=== PATIENT | female | born 1965 | race Caucasian/White ===

== ENCOUNTER 2018-05-01 12:14 | Outpatient (REF) | payer BC, SELFPAY ==
[2018-05-01 21:11] LABS: Abs Immature Grans 0.01 k/cumm (0.0-0.09); Absolute Basophil Count 0.02 k/cumm (0.0-0.2); Absolute Eosinophil Count 0.07 k/cumm (0.0-0.7); Absolute Lymphocyte Count 1.85 k/cumm (1.2-3.4); Absolute Neutrophil Count 2.81 k/cumm (1.2-6.7); Basophils % 0.4; Eosinophils % 1.4; HCT 41.6 % (36.0-46.0); HGB 13.9 g/dL (12.0-15.5); Immature Grans % 0.2; Lymphocytes % 35.9; Mean Corp. HGB Concentration 33.4 g/dL (32.0-36.0); Mean Corpuscular Hemoglobin 30.4 pg (27.0-33.0); Mean Platelet Volume 10.4 fL (8.0-11.0); Monocytes % 7.8; Neutrophils % 54.3; Platelet Count 291 x1000/uL (130-400); RBC 4.57 m/cumm (4.00-5.20); RBC Distribution Width 13.2 % (11.7-14.6); White Blood Cell Count 5.16 k/cumm (4.4-10.8)
[2018-05-01 21:49] LABS: Anion Gap 7.9 mmol/L (3-11); BUN 25 mg/dL (7-18); CO2 28.1 mmol/L (21.0-32.0); CREATININE 0.82 mg/dL (0.55-1.02); Calcium 9.6 mg/dL (8.5-10.1); Chloride 102 mmol/L (98-107); Glucose 112 mg/dL (70-100); Magnesium 1.8 mg/dL (1.8-2.4); Potassium 4.5 mmol/L (3.5-5.1); Sodium 138 mmol/L (136-145); TSH (W/Ref FT4) 0.78 uIU/mL (0.358-3.74); Vitamin B12 395 pg/mL (193-986)
== END 2018-05-01 12:34 ==
LOC: NCHCN 12:14
PROVIDERS: PCP Nurse Practitioner; Visit Provider Nurse Practitioner Family
DX: R20.2 Paresthesia of skin (principal); R00.2 Palpitations; F10.10 Alcohol abuse, uncomplicated; E66.9 Obesity, unspecified
CPT/HCPCS: 80048; 82607; 83735; 84443; 85025

== ENCOUNTER 2018-09-15 08:03 | Observation (INO) | payer BC, SELFPAY ==
[2018-09-15] VITALS (15 sets, daily range): BP systolic 108–154; BP diastolic 68–94; PULSE 54–68; RESP 11–22; TEMP 36.3–37.1; O2SAT 95–100
--- NOTE | 2018-09-15 08:24 | DI.CT_ITS ---
SYMPTOM/DIAGNOSIS: RLQ ABD PAIN ABDOMEN AND PELVIC CT: Images were performed from the lung bases through the ischial tuberosities after IV and oral contrast. There is abnormal dilatation of the appendix consistent with acute appendicitis. There is no evidence of abscess or perforation. There is no bowel obstruction. The lung bases are clear. The heart size is normal. The liver, gallbladder, spleen, pancreas, adrenals and kidneys are unremarkable. An IUD is noted within the uterus. The ovaries appear normal. The urinary bladder is unremarkable. IMPRESSION: The findings are consistent with acute appendicitis. No abscess or perforation is seen.
--- NOTE | 2018-09-15 08:25 | W.ED.GENAD ---
Discharge Plan Disposition Patient Disposition: [facility] INPATIENT Condition: Stable Discharge Details Chief Complaint: Abd Prob Clinical Impression: Acute appendicitis Admit Date/Time: 09/15/18 14:24 Admit Provider: Mary Morris Attending Provider: Mary Morris Primary Care Provider: Melissa Blanton [facility] Course: 52 y/o female presented to the ED earlier today with abdominal pain. CT findings consistent with acute appendicitis. Patient underwent an uneventful laparoscopic appendectomy which she tolerated well. Patient was started on an oral diet which she tolerated prior to discharge. Discharge Instructions Additional Instructions: No lifting > 20 pounds x 2 weeks. May use heating pad or ice pack to abdomen as needed for comfort. Forms: Nursing Discharge Form Referrals: Roxanne Doshi MD [ [facility] STAFF PHYSICIAN] - (Follow-up with general surgery in 2 weeks. Post-op visit s/p lap appy.) Discharge Data Discharge Date/Time-TO BE ENTERED AT DEPARTURE: 09/15/18 23:00 Medical Decision Making Patient presenting to the emergency department for chief complaint of abdominal pain. Patient states that this discomfort is been going on for the past 10 days and she associated the discomfort with some constipation. She contacted her electronics engineering professor given that she has a history of ulcerative colitis whom recommended she start MiraLAX. Patient did have a bowel movement 2 days ago which then helped with her symptoms but then yesterday evening she started having severe abdominal pain and cramping. It does seem to be a little bit better this morning but still is persistent. Patient denies any other baseline changes from her ulcerative colitis or other medical complaints. Physical exam shows a soft abdomen with normal active bowel sounds in all quadrants but tenderness to the right lower quadrant. No CVA tenderness and otherwise unremarkable exam. Plan to check labs and CT imaging. Patient denies any need of pain medication or treatment pending results at this time. Labs were reviewed and show no leukocytosis and are otherwise nondiagnostic. CT imaging shows findings suggestive of acute appendicitis. Dr. Morris was consulted for consideration of surgical intervention for acute appendicitis. Patient was admitted to surgery services and patient was in agreement with this plan of care HPI General Mode of arrival: ambulatory. Date/Time Provider Initiated Documentation: 09/15/18 08:04. Limitations to Documentation: no limitations. Information obtained by: RN notes reviewed. History of Present Illness 52 year old F presents to the emergency department with the chief complaint of abd pain, described as mild, with intensity rated at 2. Quality is described as aching and other (cramping), and is localized to the abdomen. Patient reports radiation to back. Patient started experiencing this day(s) (10) and it has been constant and intermittent. Patient notes no other symptoms.. Patient did receive the following treatments prior to arrival, none Related Data Home Medications Medication Instructions Recorded Confirmed Mirena 1 ea INTRAUTERINE ONCE #1 implant 07/03/13 09/15/18 albuterol sulfate 2 puff INHALATION Q4H PRN inhaler 07/03/13 09/15/18 Apriso 4 tab PO DAILY 10/11/16 09/15/18 ibuprofen 800 mg PO TID PRN tab-cap 10/19/16 09/15/18 Allergies Allergy/AdvReac Type Severity Reaction Status Date / Time No Known Drug Allergies Allergy Unverified 09/15/18 08:12 General Stated Complaint: Abd Prob SHUN: 3 Review of Systems Constitutional Denies chills, Denies fever(s) and Reports poor appetite Cardiovascular Denies chest pain and Denies dyspnea Respiratory Denies cough and Denies dyspnea Gastrointestinal Reports as per HPI, Reports abdominal pain, Denies melena, Reports hematochezia (at baseline), Denies change in bowel habits, Denies constipation, Denies diarrhea, Reports nausea and Denies vomiting Genitourinary Denies hematuria, Denies urinary incontinence, Denies urinary hesitancy and Denies urinary urgency Integumentary/Breasts Denies rash PFSH Medical History Acute ulcerative colitis (Acute) Surgical History H/O umbilical hernia repair (Acute) Social History Smoking/Tobacco Use Status: Never Alcohol Intake: current Alcohol Intake frequency: a few times a week Drug use: Never Substance use type: does not use Do you feel safe at home: Yes Do you feel safe in your relationship?: Yes Exam Const General: cooperative Orientation: alert, awake and oriented x3 Resp Effort & Inspection: normal respiratory effort and able to speak in complete sentences Auscultation: clear to auscultation bilaterally Cardio Rate: regular rate Rhythm: regular rhythm Heart Sounds: S1 normal and S2 normal GI Palpation: soft, no hepatosplenomegaly, not firm, no guarding, no masses, no pulsatile masses, not rigid, no splenomegaly and tender in the RLQ; Miranda's sign negative, with no rebound tenderness and Rovsing's sign negative Auscultation: normal bowel sounds Back/Spine/Pelvis Back: no CVA tenderness Neuro General: alert, awake, oriented x3, gait normal and moves all extremities Course Vital Signs Temperature 36.6 C 09/15/18 08:07 Pulse 68 09/15/18 08:07 Respiratory Rate 18 09/15/18 08:07 Blood Pressure 123/92 H 09/15/18 08:07 Pulse Oximetry 98 09/15/18 08:07 Temperature 36.6 C 09/15/18 08:07 Temperature Source Skin 09/15/18 08:07 Pulse 68 09/15/18 08:07 Respiratory Rate 18 09/15/18 08:07 Respiratory Effort Non-Labored 09/15/18 08:16 Blood Pressure 123/92 H 09/15/18 08:07 Blood Pressure Position Sitting 09/15/18 08:07 Pulse Oximetry 98 09/15/18 08:07 Oxygen Delivery Method Room Air 09/15/18 08:07 Oxygen Flow Rate 0 09/15/18 08:07 Pain Level 2 09/15/18 08:07
[2018-09-15] MEDS: Normal Saline 1,000 ML 1000 ML IV (08:45)
[2018-09-15 08:57] LABS: Abs Immature Grans 0.01 k/cumm (0.0-0.09); Absolute Basophil Count 0.02 k/cumm (0.0-0.2); Absolute Eosinophil Count 0.07 k/cumm (0.0-0.7); Absolute Monocyte Count 0.35 k/cumm (0.11-0.7); Absolute Neutrophil Count 1.85 k/cumm (1.2-6.7); Basophils % 0.5; Eosinophils % 1.6; HCT 41.3 % (36.0-46.0); Immature Grans % 0.2; Lymphocytes % 46.5; Mean Corp. HGB Concentration 33.9 g/dL (32.0-36.0); Mean Corpuscular Hemoglobin 30.8 pg (27.0-33.0); Mean Platelet Volume 9.6 fL (8.0-11.0); Monocytes % 8.1; Neutrophils % 43.1; Platelet Count 292 x1000/uL (130-400); RBC 4.54 m/cumm (4.00-5.20); RBC Distribution Width 13.2 % (11.7-14.6)
[2018-09-15 09:10] LABS: ALT 35 U/L (12-78); AST 19 U/L (15-37); Alkaline Phosphatase 84 U/L (46-116); Anion Gap 11.4 mmol/L (3-11); BUN 15 mg/dL (7-18); Bilirubin, Total 0.7 mg/dL (0.2-1.0); CO2 26.6 mmol/L (21.0-32.0); CREATININE 0.83 mg/dL (0.55-1.02); Calcium 9.3 mg/dL (8.5-10.1); Chloride 102 mmol/L (98-107); Glucose 104 mg/dL (70-100); Lipase 103 U/L (73-393); Potassium 3.6 mmol/L (3.5-5.1); Sodium 140 mmol/L (136-145); Total Protein 7.6 g/dL (6.4-8.2)
[2018-09-15 09:32] LABS: Bilirubin Negative (Negative); Blood Trace-intact (Negative); Clarity Clear; Glucose Negative (Negative); Ketones Negative (Negative); Leukocyte Esterase Negative (Negative); Nitrite Negative (Negative); Urobilinogen 0.2 EU/dL (Up TO 0.2); pH 5.5 (5-8)
[2018-09-15 09:46] LABS: Bacteria Rare HPF (Negative); C & S Indicated? No; Casts Negative LPF (Negative); Crystals Negative HPF (Negative); Epithelial Cells Moderate HPF (Negative); Mucus Trace (Negative); RBC 0-2 (0-2); WBC 0-2 HPF (0-5)
[2018-09-15] MEDS: Omnipaque 350 MG/ML 100 ML BTL IJ (10:33)
--- NOTE | 2018-09-15 12:12 | W.PM.HP.N ---
Date of service: 09/15/18 Time of Service: 12:19 Assessment and Plan (1) Acute appendicitis: Current visit: Yes Status: Acute 52 y/o female with RLQ abdominal pain and CT scan demonstrating an enlarged appendix consistent with acute appendicitis. Discussed with patient recommendation to proceed with laparoscopic appendectomy including risks, benefits, and alternatives. These include but are not limited to risks with general anesthesia, bleeding, infection, scarring, conversion to open, injury to adjacent structures and organs, drain placement, option of non-operative management, and possible additional procedures. All questions asked. Patient wishes to proceed with surgery. Will order Invanz for perioperative antibiotic coverage. To OR soon. (2) Ulcerative colitis: Current visit: Yes Status: Chronic Stable. Patient does not appear to be having an acute exacerbation of ulcerative colitis. Continue Apriso and follow-up with her established manager deli. History of Present Illness Chief Complaint: Abdominal pain Narrative: 52 y/o female seen in the ED at [facility]. Patient notes that she ate a chefs salad 10 days ago. Afterwards, she developed sharp abdominal pain and cramping with constipation. She has a h/o ulcerative colitis and is on Apriso for this. She has not had a flare-up in a long time. She is followed by a manager deli for her UC and contacted him about 3 days ago. She notes that she was told her symptoms were not typical for ulcerative colitis and to try Miralax for her constipation. She has been taking Miralax and had a bowel movement yesterday which made her feel better. However, she then developed recurrent lower abdominal pain and cramping and came to the ED this am for evaluation. WBC WNL. CT abd/pelvis noted an enlarged appendix consistent with acute appendicitis. No other acute findings noted. Films and report reviewed. Patient still notes some residual tenderness in the umbilical region and RLQ. Review of Systems Constitutional Reports system reviewed and no additional complaints, except as docu, Denies chills and Denies fever(s) Cardiovascular Denies chest pain and Reports rapid heart rate (chronic per patient) Gastrointestinal Reports abdominal pain, Reports constipation, Reports cramping, Denies diarrhea, Denies nausea and Denies vomiting Genitourinary Denies hematuria, Denies urinary frequency and Denies dysuria [facility] Medical History Acute ulcerative colitis (Acute) Surgical History H/O umbilical hernia repair (Acute) Social History Smoking/Tobacco Use Status: Never Alcohol Intake: current Alcohol Intake frequency: a few times a week Drug use: Never Substance use type: does not use Do you feel safe at home: Yes Do you feel safe in your relationship?: Yes Meds Home Medications Medication Instructions Recorded Confirmed Type Mirena 1 ea INTRAUTERINE ONCE #1 implant 07/03/13 09/15/18 History albuterol sulfate 2 puff INHALATION Q4H PRN inhaler 07/03/13 09/15/18 History Apriso 4 tab PO DAILY 10/11/16 09/15/18 History ibuprofen 800 mg PO TID PRN tab-cap 10/19/16 09/15/18 History Allergies Allergy/AdvReac Type Severity Reaction Status Date / Time No Known Drug Allergies Allergy Unverified 09/15/18 08:12 Exam Const General: cooperative, no acute distress and well developed Nutritional Appearance: well nourished Orientation: alert and oriented x3 HENMT Head: normocephalic and atraumatic Eyes Sclera: sclerae normal Neck Neck: trachea midline and supple Resp Effort & Inspection: normal respiratory effort and able to speak in complete sentences Cardio Jugular venous pressure: no JVD Rate: regular rate Rhythm: regular rhythm GI Inspection: non-distended and scar (infraumbilical) Palpation: soft, not firm, no guarding, no masses, not rigid and tender (periumbilical and RLQ) Skin General skin exam: no rashes or lesions noted and no jaundice Neuro General: alert and oriented x3 Speech: speech normal Results Imaging Abdomen CT scan report/results: report reviewed and image reviewed CT scan - pelvis: report reviewed and image reviewed Imaging Studies: Patient Name: Patrick GAY #: [id number]: ER Ordering Provider: Eugene Jose NPAccount #: [id number]: REG ER Primary Care Provider: Melissa Blanton Date of Exam: 09/15/18Sex: F : 1965Age: 52 Exam(s) a CT:CT abdomen & pelvis w SYMPTOM/DIAGNOSIS: RLQ ABD PAIN ABDOMEN AND PELVIC CT: Images were performed from the lung bases through the ischial tuberosities after IV and oral contrast. There is abnormal dilatation of the appendix consistent with acute appendicitis. There is no evidence of abscess or perforation. There is no bowel obstruction. The lung bases are clear. The heart size is normal. The liver, gallbladder, spleen, pancreas, adrenals and kidneys are unremarkable. An IUD is noted within the uterus. The ovaries appear normal. The urinary bladder is unremarkable. IMPRESSION: The findings are consistent with acute appendicitis. No abscess or perforation is seen. [id number]: Total DLP = 0.00 mGy-cm Ordered By: Eugene Jose NP CC: Dictated By: Lela Candelaria M.D. 09/15/18 1045 <Electronically signed by Lela Candelaria M.D.> 09/15/18 1122 Transcribed By: Dixie Plummer 09/15/18 1101 This is privileged, confidential information intended only for the provider named. Any use or distribution by any person other than this provider is strictly prohibited. If you receive this report in error, please notify us immediately at [phone] and return the original report to us at the address above. Thank-you. Labs : 09/15/18 08:45 09/15/18 08:45 Laboratory Results - last 24 hr 09/15/18 09/15/18 09/15/18 08:45 08:45 09:20 WBC 4.30 L RBC 4.54 Hgb 14.0 Hct 41.3 MCV 91.0 MCH 30.8 MCHC 33.9 RDW 13.2 Plt Count 292 MPV 9.6 Immature Gran % 0.2 Neutrophils % 43.1 Lymphocytes % 46.5 Monocytes % 8.1 Eosinophils % 1.6 Basophils % 0.5 Absolute Neutrophils 1.85 Absolute Lymphocytes 2.00 Absolute Monocytes 0.35 Absolute Eosinophils 0.07 Absolute Basophils 0.02 Sodium 140 Potassium 3.6 Chloride 102 Carbon Dioxide 26.6 Anion Gap 11.4 H BUN 15 Creatinine 0.83 Estimated GFR/1.73 m2 >= 60.00 Glucose 104 H Calcium 9.3 Total Bilirubin 0.7 AST 19 ALT 35 Alkaline Phosphatase 84 Total Protein 7.6 Albumin 4.0 Lipase 103 Urine Color Yellow Urine Clarity Clear Urine pH 5.5 Ur Specific [place] 1.010 Urine Protein Negative Urine Ketones Negative Urine Blood Trace-intact H Urine Nitrite Negative Urine Bilirubin Negative Urine Urobilinogen 0.2 Ur Leukocyte Esterase Negative Urine RBC 0-2 Urine WBC 0-2 Ur Epithelial Cells Moderate Urine Crystals Negative Urine Bacteria Rare Urine Casts Negative Urine Mucus Trace Ur Culture Indicated? No Urine Glucose Negative Last Vital Signs Temp 36.8 C 09/15/18 10:57 Pulse 60 09/15/18 10:57 Resp 18 09/15/18 09:44 BP 144/93 H 09/15/18 10:57 Pulse Ox 98 09/15/18 10:57
--- NOTE | 2018-09-15 12:27 | HPE_ITS ---
Date of service: 09/15/18 Time of Service: 12:19 Assessment and Plan (1) Acute appendicitis: Current visit: Yes Status: Acute 52 y/o female with RLQ abdominal pain and CT scan demonstrating an enlarged appendix consistent with acute appendicitis. Discussed with patient recommendation to proceed with laparoscopic appendectomy including risks, benefits, and alternatives. These include but are not limited to risks with general anesthesia, bleeding, infection, scarring, conversion to open, injury to adjacent structures and organs, drain placement, option of non-operative management, and possible additional procedures. All questions asked. Patient wishes to proceed with surgery. Will order Invanz for perioperative antibiotic coverage. To OR soon. (2) Ulcerative colitis: Current visit: Yes Status: Chronic Stable. Patient does not appear to be having an acute exacerbation of ulcerative colitis. Continue Apriso and follow-up with her established burglar alarm mechanic. History of Present Illness Chief Complaint: Abdominal pain Narrative: 52 y/o female seen in the ED at [facility]. Patient notes that she ate a head chef salad 10 days ago. Afterwards, she developed sharp abdominal pain and cramping with constipation. She has a h/o ulcerative colitis and is on Apriso for this. She has not had a flare-up in a long time. She is followed by a burglar alarm mechanic for her UC and contacted him about 3 days ago. She notes that she was told her symptoms were not typical for ulcerative colitis and to try Miralax for her constipation. She has been taking Miralax and had a bowel movement yesterday which made her feel better. However, she then developed recurrent lower abdominal pain and cramping and came to the ED this am for evaluation. WBC WNL. CT abd/pelvis noted an enlarged appendix consistent with acute appendicitis. No other acute findings noted. Films and report reviewed. Patient still notes some residual tenderness in the umbilical region and RLQ. Review of Systems Constitutional Reports system reviewed and no additional complaints, except as docu, Denies chills and Denies fever(s) Cardiovascular Denies chest pain and Reports rapid heart rate (chronic per patient) Gastrointestinal Reports abdominal pain, Reports constipation, Reports cramping, Denies diarrhea, Denies nausea and Denies vomiting Genitourinary Denies hematuria, Denies urinary frequency and Denies dysuria [facility] Medical History Acute ulcerative colitis (Acute) Surgical History H/O umbilical hernia repair (Acute) Social History Smoking/Tobacco Use Status: Never Alcohol Intake: current Alcohol Intake frequency: a few times a week Drug use: Never Substance use type: does not use Do you feel safe at home: Yes Do you feel safe in your relationship?: Yes Meds Home Medications Medication Instructions Recorded Confirmed Type Mirena 1 ea INTRAUTERINE ONCE #1 implant 07/03/13 09/15/18 History albuterol sulfate 2 puff INHALATION Q4H PRN inhaler 07/03/13 09/15/18 History Apriso 4 tab PO DAILY 10/11/16 09/15/18 History ibuprofen 800 mg PO TID PRN tab-cap 10/19/16 09/15/18 History Allergies Allergy/AdvReac Type Severity Reaction Status Date / Time No Known Drug Allergies Allergy Unverified 09/15/18 08:12 Exam Const General: cooperative, no acute distress and well developed Nutritional Appearance: well nourished Orientation: alert and oriented x3 HENMT Head: normocephalic and atraumatic Eyes Sclera: sclerae normal Neck Neck: trachea midline and supple Resp Effort & Inspection: normal respiratory effort and able to speak in complete sentences Cardio Jugular venous pressure: no JVD Rate: regular rate Rhythm: regular rhythm GI Inspection: non-distended and scar (infraumbilical) Palpation: soft, not firm, no guarding, no masses, not rigid and tender (periumbilical and RLQ) Skin General skin exam: no rashes or lesions noted and no jaundice Neuro General: alert and oriented x3 Speech: speech normal Results Imaging Abdomen CT scan report/results: report reviewed and image reviewed CT scan - pelvis: report reviewed and image reviewed Imaging Studies: Patient Name: Patrick GAY #: [id number]: ER Ordering Provider: Eugene Jose NPAccount #: [id number]: REG ER Primary Care Provider: Melissa Blanton Date of Exam: 09/15/18Sex: F : 1965Age: 52 Exam(s) a CT:CT abdomen & pelvis w SYMPTOM/DIAGNOSIS: RLQ ABD PAIN ABDOMEN AND PELVIC CT: Images were performed from the lung bases through the ischial tuberosities after IV and oral contrast. There is abnormal dilatation of the appendix consistent with acute appendicitis. There is no evidence of abscess or perforation. There is no bowel obstruction. The lung bases are clear. The heart size is normal. The liver, gallbladder, spleen, pancreas, adrenals and kidneys are unremarkable. An IUD is noted within the uterus. The ovaries appear normal. The urinary bladder is unremarkable. IMPRESSION: The findings are consistent with acute appendicitis. No abscess or perforation is seen. [id number]: Total DLP = 0.00 mGy-cm Ordered By: Eugene Jose NP CC: Dictated By: Lela Candelaria M.D. 09/15/18 1045 <Electronically signed by Lela Candelaria M.D.> 09/15/18 1122 Transcribed By: Dixie Plummer 09/15/18 1101 This is privileged, confidential information intended only for the provider named. Any use or distribution by any person other than this provider is str ictly prohibited. If you receive this report in error, please notify us immediately at [phone] and return the original report to us at the address above. Thank-you. Labs : 09/15/18 08:45 09/15/18 08:45 Laboratory Results - last 24 hr 09/15/18 09/15/18 09/15/18 08:45 08:45 09:20 WBC 4.30 L RBC 4.54 Hgb 14.0 Hct 41.3 MCV 91.0 MCH 30.8 MCHC 33.9 RDW 13.2 Plt Count 292 MPV 9.6 Immature Gran % 0.2 Neutrophils % 43.1 Lymphocytes % 46.5 Monocytes % 8.1 Eosinophils % 1.6 Basophils % 0.5 Absolute Neutrophils 1.85 Absolute Lymphocytes 2.00 Absolute Monocytes 0.35 Absolute Eosinophils 0.07 Absolute Basophils 0.02 Sodium 140 Potassium 3.6 Chloride 102 Carbon Dioxide 26.6 Anion Gap 11.4 H BUN 15 Creatinine 0.83 Estimated GFR/1.73 m2 >= 60.00 Glucose 104 H Calcium 9.3 Total Bilirubin 0.7 AST 19 ALT 35 Alkaline Phosphatase 84 Total Protein 7.6 Albumin 4.0 Lipase 103 Urine Color Yellow Urine Clarity Clear Urine pH 5.5 Ur Specific [place] 1.010 Urine Protein Negative Urine Ketones Negative Urine Blood Trace-intact H Urine Nitrite Negative Urine Bilirubin Negative Urine Urobilinogen 0.2 Ur Leukocyte Esterase Negative Urine RBC 0-2 Urine WBC 0-2 Ur Epithelial Cells Moderate Urine Crystals Negative Urine Bacteria Rare Urine Casts Negative Urine Mucus Trace Ur Culture Indicated? No Urine Glucose Negative Last Vital Signs Temp 36.8 C 09/15/18 10:57 Pulse 60 09/15/18 10:57 Resp 18 09/15/18 09:44 BP 144/93 H 09/15/18 10:57 Pulse Ox 98 09/15/18 10:57
[2018-09-15] MEDS: Lactated Ringers 1,000 ML 100 ML IV ×2 (13:10→15:48)
[2018-09-15] MEDS: Bupivacaine 0.25% Pres-Free 30 ML VIAL (13:44)
--- NOTE | 2018-09-15 13:58 | APP_PTH ---
PATIENT: Carmel Valladares LOC: U#:[id number] AGE/SX: 52/F ROOM: 207 RE09/15/[address]: Mary Morris : 1965 BED: A DIS: 09/15/2018 SPEC #: [id number] RECD: 09/15/18 16:14 STATUS: DONI REQ #: [id number] CLIFF: 09/15/18 13:[address]: Mary Morris DEPT: Surgical Specimen RECD BY: Dulce Maria Escobar ENTERED: 09/15/18 16:15 SP TYPE: Appendix OTHR DR: Melissa Blanton Tissues: 1 - APPENDIX NOT INCIDENTAL Procedures: GROSS AND MICRO LEVEL 3 Comments: [id number]
--- NOTE | 2018-09-15 14:36 | ROE_ITS ---
Date of service: 09/15/18 Time of Service: 14:32 Operative Note DATE OF PROCEDURE: 09/15/18 PRE-OP DIAGNOSIS: Acute appendicitis POST-OP DIAGNOSIS: same PROCEDURE: Laparoscopic appendectomy SURGEON: Mary Morris FOLDED CLOTH TAPER: Olivier Willson ANESTHESIA: GETA ESTIMATED BLOOD LOSS: 5 PATHOLOGY: other (Appendix) COMPLICATIONS: None Patient was transported to: PACU Patient's condition: stable Indications: 52 y/o female who presented to the ED at [facility] with abdominal pain and was found to have acute appendicitis on CT. Patient presents at this time for a laparoscopic appendectomy. Operative procedure including risks, benefits, and alternatives discussed with the patient and informed consent obtained prior to surgery. Findings: Long, mildly thickened/inflamed appendix. No perforation, phlegmon, or abscess noted. Procedure Description: Patient was brought to the operating room and placed on the table in the supine position. Patient was intubated and placed under general anesthesia. SCDs in place on both lower extremities. Castaneda catheter placed. Left arm tucked at the side. Patient had received a dose of Invanz for perioperative antibiotic coverage. Abdomen prepped and draped in the usual sterile fashion with chloraprep. Time out performed per protocol. Initial incision made just below the umbilicus along a previous scar with a 2-3 cm transverse incision which was carried down to the fascia. Fascia was elevated and incised. Peritoneal cavity was bluntly entered in the midline and swept with a finger. No adhesions noted. Stay sutures of 0-vicryl placed on either side of the fascial opening. Kaley port inserted and abdomen insufflated with CO2 to a pressure of 15 mm Hg. Patient placed in Trendelenberg with the right side elevated. Remaining ports placed under direct vision after injection with 0.25% Marcaine including a 5 mm port in the suprapubic midline and a second 5 mm port in the LLQ. There was good visualization in the pelvis. The appendix was readily identified. It was noted to be elongated and mildly thickened and inflamed. No gross perforation, phlegmon, or abscess seen. Terminal ileum and cecum were unremarkable. The base of the appendix was isolated and divided with the 45 mm medium-thick stapler cartridge x 2 on the endo JASIEL. A 45 mm vascular reload was utilized to divide the mesoappendix. The appendix was retrieved via the infraumbilical port site with the endocatch bag. Minimal oozing from the staple line on the mesoappendix was controlled with careful use of cautery. Peritoneal cavity was irrigated with saline and suctioned until the effluent was clear. Cecum, terminal ileum, and visualized small bowel loops intact and viable with no signs of injury. Liver, gallbladder, right ovary/fallopian tube, and uterus were grossly unremarkable on inspection. Abdomen was decompressed. Fascia at the infraumbilical site closed by tying together the stay sutures in a pursestring fashion. Additional 0.25% Marcaine injected at this site for postop analgesia. Skin incisions closed with subcuticular 4-0 monocryl. Skin adhesive applied. Castaneda catheter removed. Patient was extubated, awakened from anesthesia, and transferred to recovery in satisfactory condition. Patient tolerated surgery well.
[2018-09-15] MEDS: fentaNYL 100 MCG/2 ML VIAL IVP (14:44)
[2018-09-15] MEDS: HYDROmorphone 2 MG/ML VIAL IVP ×3 (15:03→15:46)
[2018-09-15] MEDS: Ibuprofen 400 MG TAB 800 MG PO (17:08)
--- NOTE | 2018-09-15 18:09 | W.PM.DS.N ---
Date of service: 09/15/18 Time of Service: 18:09 DS: Diagnosis Discharge Diagnosis (1) Acute appendicitis: Status: Acute (2) Ulcerative colitis: Status: Chronic Discharge Plan Disposition Patient Disposition: HOME Condition: Stable Discharge Details Chief Complaint: Abd Prob Clinical Impression: Acute appendicitis Admit Date/Time: 09/15/18 14:24 Admit Provider: Mary Morris Attending Provider: Mary Morris Primary Care Provider: Melissa Blanton [facility]: 52 y/o female presented to the ED earlier today with abdominal pain. CT findings consistent with acute appendicitis. Patient underwent an uneventful laparoscopic appendectomy which she tolerated well. Patient was started on an oral diet which she tolerated prior to discharge. Home Meds and New Rx's Prescriptions: Continued Mirena 1 EACH intrauterine device 1 ea Intrauterine ONCE Qty: 1 RF: 0 albuterol sulfate 8.5 GM HFA aerosol inhaler 2 puff Inhalation Q4H PRN RF: 0 ibuprofen 800 MG tablet 800 mg PO TID PRNRF: 0 Apriso 0.375 GM capsule,extended release 24hr 4 tab PO DAILY RF: 0 Discharge Instructions Additional Instructions: No lifting > 20 pounds x 2 weeks. May use heating pad or ice pack to abdomen as needed for comfort. Referrals: Roxanne Doshi MD [ [facility] STAFF PHYSICIAN] - (Follow-up with general surgery in 2 weeks. Post-op visit s/p lap appy.) Activity:: Activity as Tolerated Equipment/Supplies:: No Equipment Needed Diet:: As Tolerated Discharge Orders Discharge Orders: Discharge Order (Routine); Ordered 09/15/18 Ordered By: Mary Morris Exam Const General: cooperative, comfortable, no acute distress and well developed Nutritional Appearance: well nourished Orientation: alert and oriented x3 HENMT Head: normocephalic and atraumatic Eyes Sclera: sclerae normal Resp Effort & Inspection: normal respiratory effort and able to speak in complete sentences Cardio Jugular venous pressure: no JVD Rate: regular rate Rhythm: regular rhythm GI Inspection: non-distended and incision (surgical sites clean, dry and skin intact) Palpation: soft, not firm, no guarding and not rigid DS: Data Vitals/I&O Vitals and I&O: Vital Signs Temperature 36.8 C 05/17/19 18:05 Temperature Source Tympanic 09/15/18 18:05 Pulse 62 09/15/18 18:05 Respiratory Rate 16 09/15/18 18:05 Respiratory Effort Non-Labored 09/15/18 16:41 Respiratory Depth Normal 09/15/18 16:41 Respiratory Pattern Normal 09/15/18 16:41 Blood Pressure 122/70 09/15/18 18:05 Blood Pressure Position Sitting 09/15/18 08:07 Pulse Oximetry 96 09/15/18 18:05 Respiratory End-tidal CO2 42 09/15/18 15:45 Oxygen Delivery Method Room Air 09/15/18 18:05 Oxygen Flow Rate 0 09/15/18 18:05 Pain Level 5 09/15/18 17:08 Intake & Output 09/14/18 09/15/18 09/15/18 23:59 11:59 23:59 Intake Total 1000 / 2240 1240 / 2240 Output Total 500 / 500 Balance 1000 / 1740 740 / 1740 Weight 83.915 kg 83.915 kg Intake: IV 1000 / 2130 1130 / 2130 Oral 110 / 110 Output: Urine 500 / 500 Other: Urine Color Light Jane Urine Appearance Clear Urine Odor None Emesis Description None Voiding Methods Toilet Labs on day of discharge: Labs from last 24 hours 09/15/18 09/15/18 09/15/18 09:20 08:45 08:45 WBC 4.30 L RBC 4.54 Hgb 14.0 Hct 41.3 MCV 91.0 MCH 30.8 MCHC 33.9 RDW 13.2 Plt Count 292 MPV 9.6 Immature Gran % 0.2 Neutrophils % 43.1 Lymphocytes % 46.5 Monocytes % 8.1 Eosinophils % 1.6 Basophils % 0.5 Absolute Neutrophils 1.85 Absolute Lymphocytes 2.00 Absolute Monocytes 0.35 Absolute Eosinophils 0.07 Absolute Basophils 0.02 Sodium 140 Potassium 3.6 Chloride 102 Carbon Dioxide 26.6 Anion Gap 11.4 H BUN 15 Creatinine 0.83 Estimated GFR/1.73 m2 >= 60.00 Glucose 104 H Calcium 9.3 Total Bilirubin 0.7 AST 19 ALT 35 Alkaline Phosphatase 84 Total Protein 7.6 Albumin 4.0 Lipase 103 Urine Color Yellow Urine Clarity Clear Urine pH 5.5 Ur Specific [place] 1.010 Urine Protein Negative Urine Ketones Negative Urine Blood Trace-intact H Urine Nitrite Negative Urine Bilirubin Negative Urine Urobilinogen 0.2 Ur Leukocyte Esterase Negative Urine RBC 0-2 Urine WBC 0-2 Ur Epithelial Cells Moderate Urine Crystals Negative Urine Bacteria Rare Urine Casts Negative Urine Mucus Trace Ur Culture Indicated? No Urine Glucose Negative [facility] Medical History Acute ulcerative colitis (Acute) Surgical History H/O umbilical hernia repair (Acute) Social History Smoking/Tobacco Use Status: Never Alcohol Intake: current Alcohol Intake frequency: a few times a week Drug use: Never Substance use type: does not use Do you feel safe at home: Yes Do you feel safe in your relationship?: Yes
--- NOTE | 2018-09-15 18:14 | DSE_ITS ---
Date of service: 09/15/18 Time of Service: 18:09 DS: Diagnosis Discharge Diagnosis (1) Acute appendicitis: Status: Acute (2) Ulcerative colitis: Status: Chronic Discharge Plan Disposition Patient Disposition: HOME Condition: Stable Discharge Details Chief Complaint: Abd Prob Clinical Impression: Acute appendicitis Admit Date/Time: 09/15/18 14:24 Admit Provider: Mary Morris Attending Provider: Mary Morris Primary Care Provider: Melissa Blanton [facility] Course: 52 y/o female presented to the ED earlier today with abdominal pain. CT findings consistent with acute appendicitis. Patient underwent an uneventful laparoscopic appendectomy which she tolerated well. Patient was started on an oral diet which she tolerated prior to discharge. Home Meds and New Rx's Prescriptions: Continued Mirena 1 EACH intrauterine device 1 ea Intrauterine ONCE Qty: 1 RF: 0 albuterol sulfate 8.5 GM HFA aerosol inhaler 2 puff Inhalation Q4H PRN RF: 0 ibuprofen 800 MG tablet 800 mg PO TID PRNRF: 0 Apriso 0.375 GM capsule,extended release 24hr 4 tab PO DAILY RF: 0 Discharge Instructions Additional Instructions: No lifting > 20 pounds x 2 weeks. May use heating pad or ice pack to abdomen as needed for comfort. Referrals: Roxanne Doshi MD [ [facility] STAFF PHYSICIAN] - (Follow-up with general surgery in 2 weeks. Post-op visit s/p lap appy.) Activity:: Activity as Tolerated Equipment/Supplies:: No Equipment Needed Diet:: As Tolerated Discharge Orders Discharge Orders: Discharge Order (Routine); Ordered 09/15/18 Ordered By: Mary Morris Exam Const General: cooperative, comfortable, no acute distress and well developed Nutritional Appearance: well nourished Orientation: alert and oriented x3 HENMT Head: normocephalic and atraumatic Eyes Sclera: sclerae normal Resp Effort & Inspection: normal respiratory effort and able to speak in complete sentences Cardio Jugular venous pressure: no JVD Rate: regular rate Rhythm: regular rhythm GI Inspection: non-distended and incision (surgical sites clean, dry and skin intact) Palpation: soft, not firm, no guarding and not rigid DS: Data Vitals/I&O Vitals and I&O: Vital Signs Temperature 36.8 C 05/17/19 18:05 Temperature Source Tympanic 09/15/18 18:05 Pulse 62 09/15/18 18:05 Respiratory Rate 16 09/15/18 18:05 Respiratory Effort Non-Labored 09/15/18 16:41 Respiratory Depth Normal 09/15/18 16:41 Respiratory Pattern Normal 09/15/18 16:41 Blood Pressure 122/70 09/15/18 18:05 Blood Pressure Position Sitting 09/15/18 08:07 Pulse Oximetry 96 09/15/18 18:05 Respiratory End-tidal CO2 42 09/15/18 15:45 Oxygen Delivery Method Room Air 09/15/18 18:05 Oxygen Flow Rate 0 09/15/18 18:05 Pain Level 5 09/15/18 17:08 Intake & Output 09/14/18 09/15/18 09/15/18 23:59 11:59 23:59 Intake Total 1000 / 2240 1240 / 2240 Output Total 500 / 500 Balance 1000 / 1740 740 / 1740 Weight 83.915 kg 83.915 kg Intake: IV 1000 / 2130 1130 / 2130 Oral 110 / 110 Output: Urine 500 / 500 Other: Urine Color Light Jane Urine Appearance Clear Urine Odor None Emesis Description None Voiding Methods Toilet Labs on day of discharge: Labs from last 24 hours 09/15/18 09/15/18 09/15/18 09:20 08:45 08:45 WBC 4.30 L RBC 4.54 Hgb 14.0 Hct 41.3 MCV 91.0 MCH 30.8 MCHC 33.9 RDW 13.2 Plt Count 292 MPV 9.6 Immature Gran % 0.2 Neutrophils % 43.1 Lymphocytes % 46.5 Monocytes % 8.1 Eosinophils % 1.6 Basophils % 0.5 Absolute Neutrophils 1.85 Absolute Lymphocytes 2.00 Absolute Monocytes 0.35 Absolute Eosinophils 0.07 Absolute Basophils 0.02 Sodium 140 Potassium 3.6 Chloride 102 Carbon Dioxide 26.6 Anion Gap 11.4 H BUN 15 Creatinine 0.83 Estimated GFR/1.73 m2 >= 60.00 Glucose 104 H Calcium 9.3 Total Bilirubin 0.7 AST 19 ALT 35 Alkaline Phosphatase 84 Total Protein 7.6 Albumin 4.0 Lipase 103 Urine Color Yellow Urine Clarity Clear Urine pH 5.5 Ur Specific [place] 1.010 Urine Protein Negative Urine Ketones Negative Urine Blood Trace-intact H Urine Nitrite Negative Urine Bilirubin Negative Urine Urobilinogen 0.2 Ur Leukocyte Esterase Negative Urine RBC 0-2 Urine WBC 0-2 Ur Epithelial Cells Moderate Urine Crystals Negative Urine Bacteria Rare Urine Casts Negative Urine Mucus Trace Ur Culture Indicated? No Urine Glucose Negative [facility] Medical History Acute ulcerative colitis (Acute) Surgical History H/O umbilical hernia repair (Acute) Social History Smoking/Tobacco Use Status: Never Alcohol Intake: current Alcohol Intake frequency: a few times a week Drug use: Never Substance use type: does not use Do you feel safe at home: Yes Do you feel safe in your relationship?: Yes
== END 2018-09-15 19:40 | disposition home or self-care (01) ==
LOC: ER 12:40 → SUR 13:02 → MS 18:14
PROVIDERS: Admitting Provider Surgery; Emergency Provider Nurse Practitioner Family; PCP Nurse Practitioner Family; Visit Provider Surgery
PROC: 0DTJ4ZZ Resection of Appendix, Percutaneous Endoscopic Approach (ICD-10-PCS; CPT 44970; principal; 2018-09-15 13:00)
DX: K35.890 Other acute appendicitis without perforation or gangrene (principal); K51.90 Ulcerative colitis, unspecified, without complications
CPT/HCPCS: 44970; 36415; 80053; 83690; 96360; 96361; 99223; 99285; NC; 74177; 81003; 81015; 85025; 88304; 99284; G0378; J1100; J1335; J2250; J2405; J3490

== ENCOUNTER 2019-11-13 09:38 | Outpatient (REF) | payer BC, SELFPAY ==
[2019-11-13 21:25] LABS: ALT 49 U/L (14-59); AST 31 U/L (15-37); Alkaline Phosphatase 93 U/L (46-116); Anion Gap 11.3 mmol/L (3-11); Bilirubin, Total 0.5 mg/dL (0.2-1.0); CO2 23.7 mmol/L (21.0-32.0); CREATININE 0.77 mg/dL (0.55-1.02); Calcium 9.4 mg/dL (8.5-10.1); Calculated LDL 140 mg/dL (<100); Chloride 105 mmol/L (98-107); Cholesterol 252 mg/dL (<200); Glucose 110 mg/dL (74-106); HDL Cholesterol 98 mg/dL (40-60); Potassium 4.4 mmol/L (3.5-5.1); Sodium 140 mmol/L (136-145); Total Protein 6.9 g/dL (6.4-8.2); Triglyceride 74 mg/dL (<150)
[2019-11-13 21:41] LABS: BUN 17 mg/dL (7-18)
[2019-11-13 21:53] LABS: Hemoglobin A1C 5.8 % (3.8-5.6)
== END 2019-11-13 09:58 ==
LOC: NCHCN 09:38
PROVIDERS: PCP Nurse Practitioner Family; Visit Provider Family Medicine
DX: R73.03 Prediabetes (principal); E66.9 Obesity, unspecified
CPT/HCPCS: 80053; 80061; 83036

== ENCOUNTER 2020-01-02 04:36 | Outpatient (CLI) | payer BC, SELFPAY ==
--- NOTE | 2020-01-02 08:20 | DI.MAMMO_ITS ---
EXAM: MG MAMMO SCREENING CLINICAL HISTORY: SCREENING, Z12.31 TECHNIQUE: Bilateral full field digital CC and MLO mammographic images were obtained with 3D tomosyn thesis and utilizing computer aided detection (CAD). COMPARISON: Available for comparison. FINDINGS: Masses/Architectural Distortion: None seen. Microcalcifications: No suspicious pleomorphic-type are seen. Skin Thickening/Nipple Retraction: None. IMPRESSION: 1. No significant interval change with no specific features of malignancy noted. 2. Unless there is more urgent need, screening mammography is recommended, as per [place] [employer] guidelines. BI-RADS Category 1 - Negative Breast Density - Category C - Heterogeneously dense The mammogram demonstrates the patient's breast tissue is dense. Dense breast tissue is very common a nd is not abnormal but dense breast tissue can make it harder to find cancer on a mammogram. Also, de nse breast tissue may increase their breast cancer risk. This information about the result of the [facility] mogram report was provided to the patient to raise their awareness. Use this report when you speak wi th the patient about their risks for breast cancer, which includes their family history. At that time , you may recommend for more screening tests (Ultrasound or MRI) as they might be useful based on the ir risk. A negative radiographic report should not delay biopsy if a dominant or clinically suspicious mass is present. Up to ten percent of cancers are not identified on mammography. A negative report may reinforce clinical impression. Adenosis and dense breasts may obscure an underlying neoplasm. False positive reports average 6 to 10%. Patient will receive a letter notifying them of these results.
== END 2020-01-02 04:56 ==
PROVIDERS: PCP Nurse Practitioner Family; Visit Provider Family Medicine
DX: Z12.31 Encounter for screening mammogram for malignant neoplasm of breast (principal); R92.2 Inconclusive mammogram
CPT/HCPCS: 77063; 77067

== ENCOUNTER 2020-06-06 19:23 | Outpatient (REF) | payer BC, SELFPAY ==
[2020-06-08 12:45] LABS: COVID-19 RT-PCR UVMMC Result Negative (Negative)
== END 2020-06-06 19:24 | disposition home or self-care (01) ==
LOC: NCHCN 19:23
PROVIDERS: PCP Nurse Practitioner Family; Visit Provider Family Medicine
DX: R06.02 Shortness of breath (principal)
CPT/HCPCS: U0003

== ENCOUNTER 2020-07-29 12:50 | Outpatient (REF) | payer BC, SELFPAY ==
[2020-07-30 11:08] LABS: COVID-19 RT-PCR UVMMC Result Negative (Negative)
== END 2020-07-29 12:51 | disposition home or self-care (01) ==
LOC: NCHCN 12:50
PROVIDERS: PCP Nurse Practitioner Family; Visit Provider Family Medicine
DX: Z20.822 Contact with and (suspected) exposure to COVID-19 (principal)
CPT/HCPCS: U0003

== ENCOUNTER 2020-07-31 12:44 | Outpatient (REF) | payer BC, SELFPAY ==
[2020-08-01 11:27] LABS: COVID-19 RT-PCR UVMMC Result Negative (Negative)
== END 2020-07-31 12:45 | disposition home or self-care (01) ==
LOC: NCHCN 12:44
PROVIDERS: PCP Nurse Practitioner Family; Visit Provider Family Medicine
DX: Z20.822 Contact with and (suspected) exposure to COVID-19 (principal)
CPT/HCPCS: U0003

== ENCOUNTER 2021-02-06 12:33 | Outpatient (REF) | payer BC, SELFPAY ==
[2021-02-07 15:15] LABS: COVID-19 RT-PCR UVMMC Result Negative (Negative)
== END 2021-02-06 12:34 | disposition home or self-care (01) ==
LOC: NCHCN 12:33
PROVIDERS: PCP Nurse Practitioner Family; Visit Provider Family Medicine
DX: Z20.822 Contact with and (suspected) exposure to COVID-19 (principal)
CPT/HCPCS: U0003

== ENCOUNTER 2021-05-28 18:55 | Outpatient (REF) | payer BC, SELFPAY ==
[2021-05-29 15:14] LABS: COVID-19 RT-PCR UVMMC Result Negative (Negative)
== END 2021-05-28 18:56 | disposition home or self-care (01) ==
LOC: NCHCN 18:55
PROVIDERS: PCP Nurse Practitioner Family; Visit Provider Family Medicine
DX: Z20.822 Contact with and (suspected) exposure to COVID-19 (principal)
CPT/HCPCS: U0003

== ENCOUNTER 2021-06-16 13:45 | Outpatient (REF) | payer BC, SELFPAY ==
[2021-06-18 15:17] LABS: COVID-19 RT-PCR UVMMC Result Positive (Negative)
== END 2021-06-16 13:46 | disposition home or self-care (01) ==
LOC: NCHCN 13:45
PROVIDERS: PCP Nurse Practitioner Family; Visit Provider Family Medicine
DX: Z20.822 Contact with and (suspected) exposure to COVID-19 (principal); J06.9 Acute upper respiratory infection, unspecified
CPT/HCPCS: U0003

== ENCOUNTER → 2021-12-15 01:01 | Outpatient (CLI) | payer BC, SELFPAY ==
--- NOTE | 2021-12-15 07:38 | DI.MAMMO_ITS ---
Exam(s) MAMMO SCREENING EXAM: MAMMO SCREENING CLINICAL HISTORY: SCREENING, Z12.31. TECHNIQUE: Bilateral full field digital CC and MLO mammographic images were obtained with 3D tomosyn thesis and utilizing computer aided detection (CAD). COMPARISON: Prior mammograms were reviewed, the most recent being January 2020. FINDINGS: There has been no significant change in the appearance and distribution of the fibroglandular tissue. There are no new spiculated masses nor malignant appearing microcalcification groups. There is no significant architectural distortion nor skin thickening-retraction. IMPRESSION: No radiographic evidence of malignancy. BI-RADS Category 1 - Negative Breast Density - Category B - Scattered areas of fibroglandular density Breast density Category C or D implies that the patient has dense breast tissue. Dense breast tissue can make it harder to find cancer on a mammogram. Dense breast tissue is also associated with an incr eased risk of breast cancer. This information about the result of the mammogram report was provided to the patient to raise their awareness. Use this report when you speak with the patient about their risks for breast cancer, which includes their family history. At that time, you may recommend additional screening tests (Ultrasoun d or MRI) as these tests may add significant information. A negative radiographic report should not delay biopsy if a dominant or clinically suspicious mass is present. Up to ten percent of cancers are not identified on mammography. A negative report may reinforce clinical impression. Adenosis and dense breasts may obscure an underlying neoplasm. False positive reports average 6 to 10%. Patient will receive a letter notifying them of these results.
== END ==
PROVIDERS: PCP Nurse Practitioner Family; Visit Provider Family Medicine
DX: Z12.31 Encounter for screening mammogram for malignant neoplasm of breast (principal)
CPT/HCPCS: 77063; 77067

== ENCOUNTER 2022-11-05 15:27 | Outpatient (REF) | payer BC, SELFPAY ==
--- NOTE | 2022-11-05 09:00 | PAPFT_PTH ---
PATIENT: Carmel Valladares LOC: [facility]#:[id number] AGE/SX: 56/F ROOM: RE11/05/[address]: Stefani Briggs : 1965 BED: DIS: 11/05/2022 SPEC #: [id number] RECD: 11/05/22 17:38 STATUS: DONI REElton #: [id number] CLIFF: 11/05/22 09:[address]: Stefani Briggs DEPT: [facility] Cytology RECD BY: Leonor Connors ENTERED: 11/05/22 17:39 SP TYPE: PAPFT OTHR DR: Melissa Blanton Tissues: 1 - CX/ENDOCX FOR PAP SMEARS Procedures: PAP THIN PREP/UVM Screening HPV DNA PROBE Comments: [id number]
[2022-11-05 14:30] LABS: HCT 40.7 % (36.0-46.0); HGB 13.2 g/dL (11.2-15.7); MCH 30.1 pg (27.0-33.0); MCHC 32.4 % (32.0-36.0); MCV 93 fL (80-95); MPV 9.4 fL (8.0-11.0); Platelet Count 384 10^3/uL (130-400); RBC 4.38 10^6/uL (3.93-5.22); RDW 13.4 % (11.7-14.6); RDW-SD 46.5 fL; WBC 6.27 10^3/uL (4.4-10.8)
[2022-11-05 14:42] LABS: ALT 60 U/L (14-59); AST 34 U/L (15-37); Alkaline Phosphatase 113 U/L (46-116); Anion Gap 6.2 mmol/L (3-11); BUN 22 mg/dL (7-18); Bilirubin, Total 0.3 mg/dL (0.2-1.0); CO2 30.8 mmol/L (21.0-32.0); CREATININE 0.8 mg/dL (0.55-1.02); Calcium 9.5 mg/dL (8.5-10.1); Calculated LDL 164 mg/dL (<100); Chloride 108 mmol/L (98-107); Cholesterol 277 mg/dL (<200); Estimated GFR 86.96 (mL/min/1.73m2); Glucose 119 mg/dL (74-106); HDL Cholesterol 103 mg/dL (40-60); Potassium 5.4 mmol/L (3.5-5.1); Sodium 145 mmol/L (136-145); Total Protein 7.3 g/dL (6.4-8.2); Triglyceride 54 mg/dL (<150)
[2022-11-05 15:03] LABS: Hemoglobin A1C 5.9 % (<5.7)
== END 2022-11-05 15:28 | disposition home or self-care (01) ==
LOC: NCHCN 15:27
PROVIDERS: PCP Nurse Practitioner Family; Visit Provider Family Medicine
DX: K21.9 Gastro-esophageal reflux disease without esophagitis (principal); R73.03 Prediabetes; R00.2 Palpitations; E78.5 Hyperlipidemia, unspecified; E55.9 Vitamin D deficiency, unspecified; R79.89 Other specified abnormal findings of blood chemistry; Z12.4 Encounter for screening for malignant neoplasm of cervix; Z11.51 Encounter for screening for human papillomavirus (HPV); Z00.00 Encounter for general adult medical examination without abnormal findings
CPT/HCPCS: 80053; 80061; 82306; 85027; 88142; 83036; 87624

== ENCOUNTER → 2022-12-17 17:22 | Outpatient (CLI) | payer BC, SELFPAY ==
--- NOTE | 2022-12-17 | DI.RAD_ITS ---
Exam(s) XR CHEST 2V PA LATERAL EXAM: XR CHEST 2V PA LATERAL CLINICAL HISTORY: COUGH, R05.8,? PNEUMONIA. TECHNIQUE: 2D digital imaging was performed. COMPARISON: No exams were available for comparison FINDINGS: 2 views: Heart size is normal. The mediastinum is not widened. Lungs are clear. No infiltrates nor pleural effusions. IMPRESSION: No acute pulmonary findings. DATA REPOSITORY: RADIATION DOSE DELIVERED:
== END ==
PROVIDERS: PCP Nurse Practitioner Family; Visit Provider Physician Assistant Medical
DX: R05.8 Other specified cough (principal)
CPT/HCPCS: 71046

== ENCOUNTER 2023-04-04 15:00 | Outpatient (REF) | payer BC, SELFPAY ==
[2023-04-04 16:31] LABS: Abs Immature Grans 0.02 10^3/uL (0.0-0.06); Absolute Basophil Count 0.04 10^3/uL (0.0-0.2); Absolute Eosinophil Count 0.05 10^3/uL (0.0-0.7); Absolute Lymphocyte Count 2.66 10^3/uL (1.2-3.4); Absolute Monocyte Count 0.54 10^3/uL (0.1-0.8); Absolute Neutrophil Count 3.47 10^3/uL (1.2-6.7); Basophils % 0.6; Eosinophils % 0.7; HCT 39.2 % (36.0-46.0); HGB 13.1 g/dL (11.2-15.7); Immature Grans % 0.3; Lymphocytes % 39.2; MCH 30.7 pg (27.0-33.0); MCHC 33.4 % (32.0-36.0); MCV 92 fL (80-95); MPV 9.1 fL (8.0-11.0); Neutrophils % 51.2; Platelet Count 402 10^3/uL (130-400); RBC 4.27 10^6/uL (3.93-5.22); RDW-SD 44.2 fL; WBC 6.78 10^3/uL (4.4-10.8)
[2023-04-06 16:03] LABS: IgE 16 IU/mL (<158)
== END 2023-04-04 15:01 | disposition home or self-care (01) ==
LOC: LBN 15:00
PROVIDERS: PCP Family Medicine; Visit Provider Student in an Organized Health Care Education/Training Program
DX: J45.909 Unspecified asthma, uncomplicated (principal)
CPT/HCPCS: 82785; 85025; 87070; 87205

== ENCOUNTER 2023-04-07 05:07 | Outpatient (CLI) | payer BC, SELFPAY ==
[2023-04-07] MEDS: Methacholine 100 MG VIAL IH (17:25)
[2023-04-07] MEDS: Inhaler, Assist Device 1 EACH MC (17:25)
[2023-04-07] MEDS: Albuterol HFA 18 GM 200 PUFF INH IH (17:25)
--- NOTE | 2023-04-11 12:43 | W.PFT ---
Date of service: 04/07/23 Time of Service: 15:06 Pulmonary Function Test Result Indications: Cough Interpretation Spirometry: There is moderate airflow limitation. There was a 20% decrease in FEV1% with administration of 4.0mg/mL methacholine. Lung Volumes: There is air trapping and hyperinflation Diffusion Capacity: Normal diffusion Airway Pressure: Increased airways resistance Impression Moderate airflow obstruction with air trapping and a normal diffusion with a positive methacholine challenge test. Clinical Correlation therefore is recommended.
== END 2023-04-07 05:08 | disposition home or self-care (01) ==
LOC: RT 05:08
PROVIDERS: PCP Family Medicine; Visit Provider Student in an Organized Health Care Education/Training Program
DX: R05.8 Other specified cough (principal)
CPT/HCPCS: 94060; 94070; 94726; 94729; 94010; J7674

== ENCOUNTER → 2023-05-26 01:53 | Outpatient (CLI) | payer BC, SELFPAY ==
--- NOTE | 2023-05-26 06:30 | DI.MRI_ITS ---
Exam(s) MR THORACIC SPINE WO/W EXAM: MR THORACIC SPINE WO/W CLINICAL HISTORY: T2 lesion seen on CT,M89.9. TECHNIQUE: Multiplanar multisequence MRI of the Thoracic spine was performed. CONTRAST MATERIAL: IV Contrast: 17 mL of Dotarem contrast administered. COMPARISON: CT CT CHEST WO from 04/22/2023 FINDINGS: Bones: The vertebral body heights are well maintained. Alignment is satisfactory. The signal characte ristics are unremarkable. In the T2 and the T9 vertebral bodies, there are foci which show hyperinten se signal on both the T1 and T2 weighted images. The T2 lesions corresponds to the finding seen on t he CT scan of the chest from 04/22/2023. Following contrast administration, there is enhancement of the lesions. The findings are consistent with hemangiomas. Mild degenerative signal endplate change s are seen in the lower cervical and thoracic spine. There are degenerative changes seen at the face t joint on the left at the T10-T11 level. No significant central spinal canal stenosis or neural for aminal stenosis results. Cord: The thoracic cord is normal size and signal intensity. No intrinsic cord lesion is present. Discs: No disc herniation or bulge is present. Soft tissues: Normal. IMPRESSION: Findings most suggestive of hemangiomas in the T2 and T9 vertebral bodies as described above. The T2 lesion corresponds to the finding seen on the CT scan of the chest from 04/22/2023. DATA REPOSITORY:
[2023-05-26] MEDS: Normal Saline Flush 10 ML SYR IVP (08:16)
[2023-05-26] MEDS: Gadoterate meglumine 20 ML SYRINGE 17 ML IVP (08:17)
== END ==
PROVIDERS: PCP Family Medicine; Visit Provider Student in an Organized Health Care Education/Training Program
DX: D18.09 Hemangioma of other sites
CPT/HCPCS: 72157

== ENCOUNTER 2024-09-07 08:08 | Outpatient (CLI) | payer OTHER, SELFPAY | END 2024-09-07 08:09 | disposition home or self-care (01) | PROVIDERS: PCP Family Medicine; Visit Provider Family Medicine | DX: R00.2 Palpitations (principal) | CPT/HCPCS: 93246 ==

== ENCOUNTER 2024-09-27 06:45 | Outpatient (CLI) | payer OTHER, SELFPAY ==
--- NOTE | 2024-09-27 09:21 | CER_ITS ---
Date of service: 09/27/24 Time of Service: 09:21 Cardiac Event Recorder Referring Provider:: Stefani Briggs Indications:: Palpitations Cardiac Event Note: This is a cardiac event monitor. Patient was monitored for 7 days and 17 hours. Predominant rhythm was sinus. Average heart rate was 6. Minimum was 46, maximum 124 There were very rare isolated ventricular ectopic beats. There was 1 ventricular triplet There were rare isolated atrial premature beats. There were several self- limited atrial runs. These were generally less than 8 beats in duration and asymptomatic There was no atrial fibrillation, no high-grade AV block, no pauses greater than 3 seconds. Patient symptom may have correlated to an atrial premature beat
== END 2024-09-27 06:46 | disposition home or self-care (01) ==
LOC: CARDOPNVT 06:45
PROVIDERS: PCP Family Medicine; Visit Provider Internal Medicine Cardiovascular Disease
DX: R00.2 Palpitations (principal)
CPT/HCPCS: 93248

== ENCOUNTER 2024-10-20 17:13 | Outpatient (REF) | payer OTHER, SELFPAY ==
[2024-10-22 10:20] LABS: HSV 1 DNA Result Negative (Negative); HSV 2 DNA Result Negative (Negative)
== END 2024-10-20 17:14 | disposition home or self-care (01) ==
LOC: LBN 17:13
PROVIDERS: PCP Family Medicine; Visit Provider Physician Assistant Medical
DX: R23.8 Other skin changes (principal)
CPT/HCPCS: 87529